=== PATIENT | female | born 1955 | race Caucasian/White ===

== ENCOUNTER 2016-10-15 13:48 | Emergency (ER) | payer OTHER ==
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
--- NOTE | ~2016-10-15 | EKG ---
PATIENT: AMBER MAGAÑA UNIT #: [id number] Ventricular Rate: 91 BPM Atrial Rate: 91 BPM P-R Interval: 148 ms QRS Duration: 80 ms Q-T Interval: 372 ms QTC Calculation(Bezet): 457 ms P [place]: 34 degrees Calculated R [place]: 14 degrees Calculated T [place]: 26 degrees Diagnosis Line: Normal sinus rhythm Diagnosis Line: Normal ECG Diagnosis Line: No previous ECGs available Diagnosis Line: Confirmed by ALESHIA ALLAN MD ([id number]) on Diagnosis Line: 10/21/2016 8:49:28 AM INTERPRETING MD: SANJANA CORBETT
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
[2016-10-15] MEDS ORDERED: HYDROCHLOROTH12.5 M1 PO (14:22)
[2016-10-15 15:07] LABS: BASOPHIL# 0.1 X10e3 (0-0.3); BASOPHIL% 0.8 % (0-2.5); EOSINOPHIL# 0.1 X10e3 (0-0.7); EOSINOPHIL% 1.1 % (0.0-7.0); HEMATOCRIT 43.3 % (35.0-45.0); HEMOGLOBIN 14.6 gm/dL (12.0-16.0); LYMPHOCYTE# 1.9 X10e3 (1.0-3.5); LYMPHOCYTE% 27.7 % (17.0-45.0); MEAN CELL VOLUME 90.8 FL (83-96); MEAN CORPUSCULAR HEMOGLOBIN 30.6 PG (28-34); MEAN CORPUSCULAR HGB CONC 33.7 g/dL (30-36); MEAN PLATELET VOLUME 8.2 FL (6.5-11.5); MONOCYTE# 0.6 X10e3 (0-1.0); NEUTROPHIL# 4.3 X10e3 (1.5-7.1); NEUTROPHIL% 61.4 % (40-75); PLATELET COUNT 362 X10e3 (140-420); RED BLOOD COUNT 4.77 X10e (3.90-5.30); RED CELL DISTRIBUTION WIDTH 13.2 % (11.0-15.5)
[2016-10-15 15:12] LABS: DIFF IND NO
[2016-10-15 15:15] LABS: POC - CKMB <1.0 ng/mL (0.0-7.9); POC - TROPONIN <0.05 ng/mL (<=0.05)
[2016-10-15 15:20] LABS: POC - CREATININE 0.83 mg/dL (0.44-1.03); POC - GFR >60.0 mL/min (>60)
[2016-10-15 15:29] LABS: ALBUMIN SERUM 4.3 g/dL (3.5-5.0); BILIRUBIN, DIRECT 0.1 mg/dL (0.0-0.2); BILIRUBIN,INDIRECT 0.1 mg/dL (0.0-0.9); BILIRUBIN,TOTAL 0.2 mg/dL (0.2-2.0); BUN/CREATININE RATIO 13.75; CALCIUM SERUM 9.6 mg/dL (8.4-10.2); CREATININE SERUM 0.8 mg/dL (0.6-1.4); GLOM FILT RATE Estimated 79.1 mL/min (>60); POTASSIUM 3.6 mmol/L (3.5-5.1); PROTEIN TOTAL SERUM 7.6 g/dL (6.0-8.3)
[2016-10-15 15:58] LABS: URINE SOURCE CLEAN CATCH
[2016-10-15 16:03] LABS: URINE APPEARANCE CLEAR; URINE BILIRUBIN NEG (NEG); URINE BLOOD TRACE-LYSED (NEG); URINE COLOR YELLOW; URINE GLUCOSE NEG (NORM); URINE KETONE NEG (NEG); URINE LEUKOCYTE ESTERASE 1+ (NEG); URINE NITRATE NEG (NEG); URINE PH 6.5 (5-8); URINE PROTEIN NEG (NEG); URINE SPECIFIC GRAVITY <=1.005 (1.003-1.035); URINE UROBILINOGEN 0.2 MG/DL (NORM)
[2016-10-15 16:09] LABS: MICRO INDICATED? YES
[2016-10-15 16:12] LABS: CULTURE INDICATED? NO; URINE BACTERIA NEG (NEG); URINE RBC 0-2 /[HPF] (0-2); URINE SQUAMOUS EPITHELIAL CELL FEW /[HPF]
== END 2016-10-15 16:51 | disposition home or self-care (01) ==
LOC: SED 13:48
PROVIDERS: Emergency Medicine
DX: S00.83XA Contusion of other part of head, initial encounter (principal); S20.212A Contusion of left front wall of thorax, initial encounter; S10.93XA Contusion of unspecified part of neck, initial encounter; E04.1 Nontoxic single thyroid nodule; Z23 Encounter for immunization; Z90.49 Acquired absence of other specified parts of digestive tract; Z79.899 Other long term (current) drug therapy; Z88.0 Allergy status to penicillin; Z88.5 Allergy status to narcotic agent; V43.52XA Car driver injured in collision with other type car in traffic accident, initial encounter
CPT/HCPCS: 70450; 71260; 72125; 73590; 80048; 80076; 81003; 82553; 82565; 83690; 84484; 85025; 90471; 90715; 93005; 99284; Q9967

== ENCOUNTER → 2016-10-29 | Outpatient (CLI) | payer BC ==
[~2016-10-29] MED LIST: HYDROCHLOROTH12.5 M1 PO
--- NOTE | ~2016-10-29 | US128 ---
[id number] [address] [address] [id number] O MR#: [id number] Acc #: [id number] NAME: AMBER MAGAÑA : 1955 SEX: F STUDY DATE/TIME: 10/29/2016 13:02 UNIT: SGUS ROOM: STUDY DESCRIPTION: Thyroid Attending Physician: Marcio Davies M.D. Referring Physician: Marcio Davies M.D. Ordering Physician: Marcio Davies M.D. Primary Care Physician: Marcio Davies M.D. MEDICAL IMAGING REPORT This report is preliminary unless electronic signature is present. EXAM Thyroid ultrasound DATE 10/29/2016 HISTORY Thyroid nodules seen on CT of 10/15/2016. COMPARISON CT cervical spine 10/15/2016. No prior dedicated thyroid ultrasound at this institution for comparison. FINDINGS The right thyroid lobe measures 1.9 x 2.3 x 4.5 cm. The isthmus measures 4 mm thickness. The left thyroid lobe measures 1.5 x 1.7 x 3.4 cm. Two hypoechoic solid-appearing right thyroid nodules are seen, located [id number]. One of these in the right mid-thyroid lobe, slightly more superior and anteromedially in position, measures 1.3 x 0.9 x 1.5 cm. Another with a hypoechoic halo is positioned slightly more posterolateral and inferiorly, measuring 1.1 x 1.0 x 1.4 cm. The more anterior-superior of these nodules demonstrates hypervascularity on color Doppler imaging. There are 2 npfd-[id number] hypoechoic solid-appearing nodules in the posterior left lower thyroid pole, one being more superiorly positioned measuring 5 x 5 x 7 mm, another more inferiorly positioned measuring 6 x 7 x 8 mm. No suspicious microcalcifications are seen. IMPRESSION 1. Multinodular non-enlarged thyroid gland as described above. The dominant nodule within the anteromedial right mid-thyroid lobe measures 1.5 cm, which meets the threshold for ultrasound-guided fine needle aspiration. The second nodule just posterior to it measures 1.4 cm, just slightly below the size threshold recommendation for fine-needle aspiration. 2. Left thyroid nodules measure less than 1 cm in size. 3. Extrathyroidal soft tissues unremarkable. Dictated by... Ade Robles M.D. THIS IS AN ELECTRONICALLY VERIFIED REPORT Ade Rboles M.D. at 10/30/2016 8:27 AM CRIS/bhargav TD: 10/29/2016 21:40 JOB #: [id number] MEDICAL IMAGING REPORT Page 1 of 1
== END | disposition home or self-care (01) ==
LOC: SGUS 12:21
DX: E04.2 Nontoxic multinodular goiter (principal)
CPT/HCPCS: 76536

== ENCOUNTER → 2016-11-05 | Outpatient (CLI) | payer BC ==
--- NOTE | ~2016-11-05 | XA230 ---
[facility] A Service [facility] RADIOLOGY TEXT RESULTS PATIENT: AMBER MAGAÑA LOCATION: [facility] : 53 UNIT #: [id number] AGE: [address]: Marcio Davies MD SEX: F ORDER DR: [id number] [place] [id number] [facility]. [place], [place] [address] [id number] O MR#: [id number] Acc #: [id number] NAME: AMBER MAGAÑA. : 1955 SEX: F STUDY DATE/TIME: 11/05/2016 13:36 UNIT: [facility] ROOM: STUDY DESCRIPTION: XA FNA Attending Physician: Marcio Davies M.D. Ordering Physician: Marcio Davies M.D. Primary Care Physician: Marcio Davies M.D. MEDICAL IMAGING REPORT This report is preliminary unless electronic signature is present EXAM Ultrasound-guided fine needle aspiration of a right lower pole thyroid nodule. HISTORY Multiple thyroid nodules PROCEDURE Procedure, attendant risks and options were discussed with the patient. She understands and wishes to proceed. Ultrasound was utilized to localize the lower lobe nodule and it was subsequently needle biopsied with aspiration technique using a 25-gauge needle under direct ultrasound visualization and local anesthesia. Needle was removed, hemostasis achieved. The patient was discharged and the procedure very well tolerated. CONCLUSION Successful ultrasound aspiration of the right lower pole thyroid nodule. Dictated by... Seth Gallegos M.D. THIS IS AN ELECTRONICALLY VERIFIED REPORT Seth Gallegos M.D. at 11/08/2016 9:21 AM RANDAL/reginaldo TD: 11/05/2016 17:06 JOB #: [id number] MEDICAL IMAGING REPORT [facility] A [facility] RADIOLOGY TEXT RESULTS PATIENT: AMBER MAGAÑA LOCATION: [facility] : 53 UNIT #: [id number] AGE: [address]: Marcio Davies MD SEX: F ORDER DR: Page 1 of 1 COPY
== END | disposition home or self-care (01) ==
LOC: CIVR 13:12
PROC: 0GBH3ZX Excision of Right Thyroid Gland Lobe, Percutaneous Approach, Diagnostic (ICD-10-PCS; principal; 2016-11-05)
DX: E04.1 Nontoxic single thyroid nodule (principal)
CPT/HCPCS: 76942; 88173; 88305